=== PATIENT | female | born 1995 | race Caucasian/White ===

== ENCOUNTER → 2023-03-21 10:00 | Outpatient (BNVA) | payer SELFPAY | PROVIDERS: PCP Internal Medicine Sports Medicine; Visit Provider Physician Assistant Surgical ==

== ENCOUNTER 2023-03-30 08:11 | Outpatient (AMB) | payer OTHER, SELFPAY ==
--- NOTE | 2023-03-30 12:12 | MHC.OFFVISWM ---
Intake VS Expanded 03/30/23 12:20 Height 5 ft 3 in Weight 226 lb 4 oz BMI 40.1 Body Fat 94.2 Body Fat Percentage 41.6 Free Fat Mass 132 Visceral Mass 10 Water Mass 94.8 BMR 1,865 Intake Visit Reasons: TV [employer]ER SWL 40.1 Allergies No Known Allergies Allergy (Verified 03/30/23 12:12) Medication List - Last Reconciled 03/30/23 by Renzo Mcgrath MD escitalopram oxalate (Lexapro) 75 mg PO DAILY etonogestrel (Nexplanon) subdermal HPI TV [employer]ER SWL 40.1 HPI Details Start time: 12pm, End time: 12.40pm ?I spent 35 minutes speaking with the patient on the phone plus an additional 5 minutes reviewing and updating records for a total of 40 minutes HPI Comments History of Present Illness Details Previous weight loss efforts: exercise, Keto diet, Weight Watchers, OTC diet pills Wakes up: 5am, Sleeps: 9pm Breakfast: 7am (cereal) x4-5/wk Lunch: 12.30-1pm (eggs, toast with peanut butter) Dinner: 5pm (steak, beef, pork, starch) Snacks: 7-8pm (cookies, chips, crackers) Exercise: has home stationary bike Fluids: Coffee: none, tea: <1/wk, soda: regular Sprite 1 bottle x3-4/wk, juice: 1-2 glasses per week (apple juice, fruit punch), ETOH: none PFSH Medical History (Updated 03/30/23 @ 12:14 by Renzo Mcgrath MD) Thyroid cancer Gestational diabetes Acute depression Morbid obesity Surgical History (Updated 03/30/23 @ 10:46 by Kiera Garcia CMA) Hx of thyroidectomy Family History (Updated 03/30/23 @ 10:47 by Kiera Garcia CMA) Mother Breast cancer Ovarian cancer Father Hypertension Daughter No problems noted. Daughter Family history of SIDS (sudden syndrome) Son Aortic stenosis Social History (Updated 03/30/23 @ 10:47 by Kiera Garcia CMA) Alcohol intake: current Alcohol intake frequency: holidays/special occasions only Patient Tobacco Use Status: Never used Tobacco Assessment & Plan Assessment & Plan (1) Morbid obesity: Code(s): E66.01 - Morbid (severe) obesity due to excess calories Plan: 1.? Plan for lap sleeve gastrectomy. If diaphragmatic or ventral hernias are present at time of surgery, these will be repaired laparoscopically as well. Risks and complications were discussed in detail including possible conversion to an open procedure, anastomotic leak, bleeding requiring transfusion, small bowel obstruction, , DVT and pulmonary embolism, cardiac, or pulmonary complications, as jail complications such as anastomotic ulcer, insufficient weight loss and vitamin deficiencies. I emphasized the importance of close follow-up, adherence to instructions and good communication. 2. Nutritional counseling. Start with 2 Isopure INFUSION protein (buy at [employer], or [employer]) shakes (HALF scoop in 8oz water each) at 6am-8am and 9am-11am, 2 protein bars (Zone Perfect protein bars, buy at [employer], ?[employer], [employer], or [employer]) at 12pm-2pm and 3pm-5pm, dinner at 6pm (8 forks of protein and 8 forks of salad/vegetables). If you feel hungry after dinner please do another HALF Zone Perfect protein bar at 8pm-9pm. Meal to include lean meat (beef, fish, pork, turkey, chicken), or macedonian yogurt, or egg whites, or beans with a salad with olive oil and fruits (berries, pears, apples, kiwi). Avoid salt, breads, potatoes, rice, pasta, desserts. 3. Each shake would be drunk slowly, like coffee in a period of 2 hours. 4. Cut each bar in 4 pieces and eat each piece in 30min ?to make each bar last 2 hours. 5. I emphasized the importance of measuring accurately the food portion and measure it when serving the food in plate 6. The meal portions include 8 full-size forks of meat and 8 full-size forks of salad. You always eat the meat portion but you can replace up to 4 forks for salad/vegetables with rice, potatoes or pasta, or a fruit ?if you like. The less you do it the better weight loss will be. 7. One full-size fork is what it can be scooped on the fork without falling aside and not what can be bit with the fork. Use regular forks like those you find in a typical restaurant. 8.? Please send me weight measurements as soon as possible and then once a week. Always include your diet and exercise plan. 9. Start stationary bike at a resistance level of 4.0 Increase level by 1.0 every 3 min to a max level of 10.0. Stay at this level for 3 min and then return to level 4.0 and repeat same steps until 300 calories are burned. Velocity target is 12mph and heart rate is 145 bpm. Goal is to burn 2000 calories per week on exercise, which means either 300 calories daily, or 400 calories 5 days per week, or 500 calories 4 days per week, or 650 calories 3 days per week. 10. It is important of avoiding and for at least 18 months postoperatively and has been discussed at the infosession. 11. Goal is to lose at least 1.5-2lbs per week 12. Goal to lose 10% of your weight before surgery, which is about 22lbs. Ultimate weight goal: 204lbs before surgery 13. Please follow the diet plan exactly without any change. If you don't like something about the plan or you feel hungry you need to communicate with me so I can help you revise the plan. You should not change the plan yourself. (2) Acute depression: Code(s): F32.A - Depression, unspecified Orders: Orders IRON PROFILE Today E66.01 - Morbid (severe) obesity due to excess calories, F32.A - Depression, unspecified Vitamin B12 and Folate Today E66.01 - Morbid (severe) obesity due to excess calories, F32.A - Depression, unspecified Vitamin B1 Today E66.01 - Morbid (severe) obesity due to excess calories, F32.A - Depression, unspecified C Reactive Protein Today E66.01 - Morbid (severe) obesity due to excess calories, F32.A - Depression, unspecified Ferritin Today E66.01 - Morbid (severe) obesity due to excess calories, F32.A - Depression, unspecified PTHI Today E66.01 - Morbid (severe) obesity due to excess calories, F32.A - Depression, unspecified H Pylori Breath Test Today E66.01 - Morbid (severe) obesity due to excess calories, F32.A - Depression, unspecified XR chest 2V Today E66.01 - Morbid (severe) obesity due to excess calories, F32.A - Depression, unspecified ECG 12 lead EKG Today E66.01 - Morbid (severe) obesity due to excess calories, F32.A - Depression, unspecified FL upper GI w air Today E66.01 - Morbid (severe) obesity due to excess calories, F32.A - Depression, unspecified Insulin Today E66.01 - Morbid (severe) obesity due to excess calories, F32.A - Depression, unspecified Lipid Panel Today E66.01 - Morbid (severe) obesity due to excess calories, F32.A - Depression, unspecified Complete Blood Count Auto Diff Today E66.01 - Morbid (severe) obesity due to excess calories, F32.A - Depression, unspecified Zinc Today E66.01 - Morbid (severe) obesity due to excess calories, F32.A - Depression, unspecified Comprehensive Met. Panel Today E66.01 - Morbid (severe) obesity due to excess calories, F32.A - Depression, unspecified Vitamin A Today E66.01 - Morbid (severe) obesity due to excess calories, F32.A - Depression, unspecified TSH reflex Free T4 Today E66.01 - Morbid (severe) obesity due to excess calories, F32.A - Depression, unspecified Vitamin D 25-OH Total Today E66.01 - Morbid (severe) obesity due to excess calories, F32.A - Depression, unspecified Hemoglobin A1c Today E66.01 - Morbid (severe) obesity due to excess calories, F32.A - Depression, unspecified US abdomen comp w elastography Today E66.01 - Morbid (severe) obesity due to excess calories, F32.A - Depression, unspecified Referrals Behavioral Health Referral E66.01 - Morbid (severe) obesity due to excess calories, F32.A - Depression, unspecified Nutrition/Dietitian Referral E66.01 - Morbid (severe) obesity due to excess calories, F32.A - Depression, unspecified Telehealth Telehealth Location of provider rendering services: practice address Location of patient: address on file Patient Identification confirmed using: Name, : Yes Telehealth method: voice only Patient verbally consented to treatment: Yes Patient verbally consented to billing insurance company: Yes Patient informed of any privacy concerns related to visit: Yes Minutes spent on Phone/Video with Pt.: 40 Coding Level of Care Code Tele [facility] Pt Level 3 (12171) Diagnoses Morbid obesity E66.01 Acute depression F32.A Time Spent (min) 40
[2023-03-30 12:20] VITALS: BMI 40.1
== END 2023-03-30 12:40 | disposition home or self-care (01) ==
LOC: HO.HBS 08:11
PROVIDERS: PCP Internal Medicine Sports Medicine; Visit Provider Surgery
DX: E66.01 Morbid (severe) obesity due to excess calories (principal); Z68.41 Body mass index [BMI] 40.0-44.9, adult
CPT/HCPCS: 99204

== ENCOUNTER → 2023-03-30 08:11 | Outpatient (BNVA) | payer OTHER, SELFPAY | PROVIDERS: PCP Internal Medicine Sports Medicine; Visit Provider Surgery ==